=== PATIENT | male | born 1955 | race Two or more races ===

== ENCOUNTER → 2022-04-10 | Day surgery (SDC) | payer OTHER ==
[~2022-04-10] VITALS: Ht 182.9 cm; Wt 94.8 kg
[~2022-04-10] MED LIST: ASCO-339 PO; BUPIVACAINE HCL/PF 0.5% (5MG/ML) 10ML ONE; DEXAMETHASONE 4MG/ML 1ML VIAL ONE; FENTANYL CITRATE/PF 50MCG/ML 2ML VIAL ONE; FURO20TA4 PO; HYDROCODONE/ACETAMINOPHEN 5/325MG TABLET PO PRN; HYDROMORPHONE HCL/PF 2MG/ML CPJ IV PRN; HYDROMORPHONE HCL/PF 2MG/ML CPJ ONE; INSU100I24 SQ; INSU100I41 SUBCUT; LABETALOL 5MG/ML SYR 20 MG/4 ML SYRINGE IV PRN; LIDOCAINE HCL 1% 20ML VIAL (Pyxis) INJ ONE; LIDOCAINE HCL 1%/EPI 1:200,000 30 ML VIAL ONE; LOSA50TA41 PO; MECL-159 PO; MEPERIDINE HCL/PF 25MG/ML CPJ IV PRN; METF-416 PO; MIDAZOLAM HCL 2 MG/2 ML VIAL ONE; MINERAL OIL 10 ML VIAL ONE; ONDA4TAB50 PO; ONDANSETRON HCL 4MG/2ML INJ IV PRN; ONDANSETRON HCL 4MG/2ML INJ ONE; OXYC-100 MT; PROPOFOL 200MG/20ML VIAL IV ONE; ROCURONIUM BROMIDE 10MG/ML VIAL 5ML IV ONE; SODIUM CHLORIDE 0.9% 1,000 ML IV SCH; SULF1TAB48 MT; VITA-347 PO; VITA1CAP PO; ZINC100T2 PO; [UNRECOGNIZED DRUG - CODE] PO
[2022-04-10 10:24] VITALS: BP 126/73
== END | disposition home or self-care (01) ==
LOC: OR 06:04
PROVIDERS: ATTEND Surgery
DX: S81.801A Unspecified open wound, right lower leg, initial encounter (principal); S81.811D Laceration without foreign body, right lower leg, subsequent encounter; E11.9 Type 2 diabetes mellitus without complications; I10 Essential (primary) hypertension; Z79.82 Long term (current) use of aspirin; Z79.84 Long term (current) use of oral hypoglycemic drugs; Z79.899 Other long term (current) drug therapy; Z20.822 Contact with and (suspected) exposure to COVID-19; Z98.890 Other specified postprocedural states; X58.XXXA Exposure to other specified factors, initial encounter; Y93.89 Activity, other specified; Y92.89 Other specified places as the place of occurrence of the external cause; Y99.8 Other external cause status
CPT/HCPCS: 11042; 15100; 82962; 87426; C9803; J1100; J1170; J2250; J2405; J2704; J3010; J3490